=== PATIENT | female | born 1965 | race Caucasian/White ===

== ENCOUNTER 2018-10-03 13:39 | Inpatient (IN) ==
--- NOTE | 2018-10-03 13:51 | Anesthesia Evaluation PreOp ---
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 10/02/18 [Rx] Docusate [Colace] 100 mg PO BID 10 Days #20 capsule 10/02/18 [Rx] OxyCODONE Immed Rel [Roxicodone 5 MG] 5 mg PO Q6HR PRN 7 Days #28 tablet 10/02/18 [Rx] Allergy/AdvReac Type Severity Reaction Status Date / Time No Known Allergies Allergy Verified 02/09/18 22:09 - Meds/Allergy Pre-op Review Medications Reviewed: Yes Allergies Reviewed: Yes Beta Blockers on Current Med List: No Anesthesia Results - Labs Laboratory Tests 09/14/18 09/14/18 09/14/18 08:10 08:10 08:10 WBC 10.7 Hgb 11.9 Hct 36.3 Plt Count 346 PT 11.2 INR 1.0 APTT 31.5 Sodium 137 Potassium 4.7 Chloride 104 Carbon Dioxide 25 BUN 14 Creatinine 0.52 L Est GFR (Non-Af Amer) > 60 Anesthesia Exam Vital Signs/O2 Sat/Glucose, Most Recent Temp Pulse Resp BP Pulse Ox 98.6 F 104 18 164/95 98 10/03/18 13:50 10/03/18 13:50 10/03/18 13:50 10/03/18 13:50 10/03/18 13:50 Weight: 61 kg NPO (# of Hours): > 8 hr - HEENT Pupil (Motor): Pupils equal Mallampati: II Teeth: Normal Oral Opening: Greater than 3 - WHITING CAN WORKER LOC: Oriented WHITING CAN WORKER Motor: Normal RUE, Normal LUE, Normal RLE, Normal LLE, Normal Face WHITING CAN WORKER Sensory: Normal: RUE, LUE, RLE, LLE, Face - Cardiac Rhythm: Regular Murmur: None - Pulmonary Breath Sounds: bilateral Clear Respiratory Effort: Symmetrical Anesthesia Assess/Plan ASA Score: 2 Level of consciousness: Cooperative, Oriented Anesthetic Plan: MAC, Spinal Monitoring Plan: Standard Monitors Recovery Plan: PACU
[2018-10-03] MEDS ORDERED: Gabapentin 300 MG CAPSULE PO ONE (13:55)
[2018-10-03] MEDS ORDERED: Famotidine 20 MG/2 ML VIAL IVP ONE (13:55)
[2018-10-03] MEDS ORDERED: Acetaminophen IV 1,000 MG/100 ML INFUS..BTL IVPB ONE (13:55)
[2018-10-03] MEDS ORDERED: Ondansetron 4 MG/2 ML VIAL IVP ONE (14:01)
[2018-10-03] MEDS ORDERED: *HR* HYDROmorphone (PF) 1 MG/ML SYRINGE IVP PRN (14:01)
[2018-10-03] MEDS ORDERED: CeFAZolin Syr 2,000MG/20 ML 2,000 MG/20 ML SYRINGE IVPB ONE (14:01)
[2018-10-03] MEDS ORDERED: *HR* OxyCODONE Immed Rel 5 MG TABLET PO PRN (14:01)
[2018-10-03] MEDS ORDERED: *HR* Promethazine 25 MG/ML VIAL IVP PRN (14:01)
[2018-10-03] MEDS ORDERED: Albuterol 2.5 MG/3 ML NEBULIZER IH ONE (14:01)
[2018-10-03] MEDS ORDERED: Ringers Solution, Lactated 1,000 ML IVC SCH ×2 (14:15→19:17)
[2018-10-03] MEDS: Celecoxib 100 MG CAPSULE PO ONE (14:21)
[2018-10-03] MEDS ORDERED: *HR* FentaNYL (PF) 100 MCG/2 ML VIAL ONE (14:23)
[2018-10-03] MEDS ORDERED: *HR* Propofol 200 MG/20 ML VIAL IVP ONE (14:27)
[2018-10-03] MEDS ORDERED: Lidocaine -MPF 4% 5 ML AMPUL ONE (14:29)
[2018-10-03] MEDS ORDERED: *HR* Succinylcholine 200 MG/10 ML VIAL IVP ONE (14:29)
[2018-10-03] MEDS ORDERED: Lidocaine -MPF 2% 2 ML VIAL ONE (14:29)
[2018-10-03] MEDS ORDERED: Dexamethasone 4 MG/ML VIAL ONE (14:29)
[2018-10-03] MEDS ORDERED: Ondansetron 4 MG/2 ML VIAL ONE (14:29)
[2018-10-03] MEDS ORDERED: *HR* Midazolam HCl 2 MG/2 ML VIAL ONE (14:31)
--- NOTE | 2018-10-03 14:47 | History & Physical Report ---
Date of Encounter: 10/03/18 Time of Encounter: 14:47 24 Hour HP Update - Instructions Instructions: If the History and Physical is less than 30 days old and was completed prior to A.M. admission and or procedure and has NOT been updated on calendar day of procedure please complete this update prior to performing procedure. - Update Patient reports changes in Medical Condition: No Changes in examination, assessment, or condition: No Changes in Medication: No Preop tests/diagnostics Reviewed: Yes Surgery Remains Indicated: Yes Consent for Planned Operative Procedure(s) Verified: Yes - Pre-Operative Checklist Preoperative Checklist Indicated: No Prophylactic Antibiotic Ordered: Yes Is VTE Prophylaxis Indicated?: Yes
[2018-10-03] MEDS ORDERED: *HR* Morphine Sulfate/PF 10 MG/10 ML AMPUL ONE (14:49)
[2018-10-03] MEDS ORDERED: Ethanol\\Acetic Acid\\Na Ace\\Ben 1,000 ML IRRIG.SOLN IR ONE (15:29)
--- NOTE | 2018-10-03 15:32 | Anesthesia Procedures ---
Date of Encounter: 10/03/18 Time of Encounter: 15:12 Procedures: Anesthesia - Epidural/Spinal Patient ID/Chart reviewed: Yes Patient examined: Yes Consent Obtained: Yes Supplemental Oxygen: Nasal Cannula Supplemental Oxygen Rate (L/min): 2 Sedation: Versed (mg): 2 Sedation: Fentanyl (mcg): 50 Site Prep: Aseptic Technique, Sterile prep and drape, Povidone-Iodine 1% Patient position: upright Local Anesthetic: Lidocaine 1% Amount of Local Anesthetic used: 2 Interspace Used: L3-L4 Blood: No CSF: Yes (clear) Paresthesia: No Spinal Needle Gauge: 25 Spinal Dose: bupivicaine 0.5% presfree 2 mlwith duramorph 0.2mg Vitals + FHT's: Vital Signs Time 1500 1510 1518 BP 156/79 146/81 142/81 Pulse 87 83 82 Resp 16 16 16 O2 Sat 96 96 96
--- NOTE | 2018-10-03 15:51 | Discharge Summary ---
Addendum entered and electronically signed by FAHAD Rico 10/06/18 20:27: Prior discharge confirmed patient had no other symptoms including no chest pain, SOB, cough, feeling feverish, headache, dizzy or lightheaded, sore throat. Original Note: Orders not resulted at time of discharge: Pending orders 10/03/18 00:01 XR hip complete LT [XR] Routine H/H [Hemoglobin and Hematocrit] [HEME] Routine Date of Encounter: 10/06/18 Time of Encounter: 12:50 - Discharge Diagnosis (1) Status post total hip replacement, left Priority: Primary Status: Acute (2) Osteoarthritis of left hip Priority: Primary Status: Acute Qualifiers: Osteoarthritis type: primary Qualified Code(s): M16.12 - Unilateral primary osteoarthritis, left hip (3) Tobacco dependency Priority: Secondary Status: Acute - Hospital Course Hospital course: Ms. Kelly is a 52 year old female s/p Total Hip Replacment robotic-assisted left 10/03/18 with history of OA, tobacco use. She had a Tmax 99.8 with a few episodes of hypotension which improved with fluid hydration and encouraging incentive spirometer. She participated in therapy and otherwise had an uneventful hospital course. Stable for discharge. Patient seen at bedside, without complaints. A&O x 3 Dressing changed, no further bleeding. No calf tenderness to palpation, good dorsiflexion of foot, sensation intact distally. Labs reviewed. H/H- stable, asymptomatic Dr. Briscoe noted patient to have poor bone quality intraop. Calcium and VitD levels ordered and WNL at this time Pain control: adequate Participating in PT. postoperative XRAYS - stable, also reviewed by Dr. Briscoe All questions and concerns addressed. Educated on use of incentive spirometer. Encouraged ambulation and proper hydration. Patient educated on post-operative restrictions and post-operative care. Assessment and plan: Continue with postoperative care Discharge plan: Home with outpatient therapy, discharge today. - Time Spent with Patient Total time spent providing and/or coordinating discharge services: - Discharge Medications Home Medications: Aspirin Enteric Coated [Aspirin EC] 325 mg PO BID #20 tablet. 10/02/18 [Rx] Docusate [Colace] 100 mg PO BID 10 Days #20 capsule 10/02/18 [Rx] OxyCODONE Immed Rel [Roxicodone 5 MG] 5 mg PO Q6HR PRN 7 Days #28 tablet 10/02/18 [Rx] Multivitamin [One-Daily Multi-Vitamin] 1 tab PO DAILY 10/03/18 [History] Allergies/Adverse Reactions: Allergy/AdvReac Type Severity Reaction Status Date / Time No Known Allergies Allergy Verified 10/03/18 14:11 Date of admission: 10/03/18 Primary care physician: PCP NONE Consults: 10/03/18 19:17 Consult to Nurse Navigator [CONS] Routine Comment: ortho navigator Consult to Occupational Therapy [CONS] Routine Comment: Evaluate, develop and implement POC Reason for Consult: total hip replacement Does patient have active BEDREST order?: No Is patient medically & hemodynamically stable?: Yes Consult to Physical Therapy [CONS] Routine Comment: Evaluate, develop and implement POC Reason for Consult: total hip replacement Does patient have active BEDREST order?: No Is patient medically & hemodynamically stable?: Yes Consult to Car Stower [CONS] Routine Reason for SW Consult: post op joint replacement RT Post Op Consult [CONS] Routine Discharging clinician: Rudi Briscoe Anticipated date of discharge: 10/06/18 Labs on day of discharge: Laboratory Results - last 48 hr 10/03/18 10/05/18 10/05/18 21:35 07:36 07:36 Hgb 9.5 L Hct 29.2 L Sodium 135 L Potassium 3.6 Chloride 102 Carbon Dioxide 25 BUN 5 L Creatinine 0.48 L Est GFR ( Amer) > 60 Est GFR (Non-Af Amer) > 60 BUN/Creatinine Ratio 10 Glucose 105 POC Glucose 125 H Calculated Osmolality 278 L Calcium 9.5 - Impressions Hip X-Ray 10/06/18 06:28 IMPRESSION: Soft tissue gas is identified in the left upper thigh similar in appearance to the prior exam and appears slightly improved. D/ / Nirmala Banegas MD / Nirmala Banegas MD Interpreting Provider: Nirmala Banegas MD - Patient Status Disposition: Home, Self-Care Condition: Good Functional capacity at discharge: uses cane/walker Overall status at discharge: patient is back to baseline - Discharge Instructions Follow Up With: Reva,Kim E, PAC [Physician Building Trades Teacher] - 10/13/18 2:15 pm NONE,PCP [Primary Care Provider] - Additional Instructions: Discharge Instructions: Total Hip Replacement Please call [facility] ([phone]), your Primary Care Physician, or report to the Emergency Room if you have any of the following symptoms: Nausea, vomiting, fever greater that 101.5, swelling, chest pain, shortness of breath, increased pain/redness/drainage/odor for your incision site, numbness/tingling, or any other concerning symptoms. ACTIVITY:Weight-bearing as tolerated for 8 weeks with hip dislocation precautions that physical therapy taught you. You may progress as tolerated under the guidance of your physical therapist. You do not need to sleep with a pillow between your legs. You can also seep on the operative side or on your stomach. Incentive Spirometer 10 times an hour. MEDICATIONS: Upon discharge resume your home medications. Take all the medications as prescribed. Take a stool softener if taking narcotic pain medications. Stool softeners are only effective if you drink enough fluids. Drink 6-8 glass of water or fluids a day, unless this is not allowed for another health problem. Despite using stool softeners, if you haven't had a bowel movement in 3 days, please switch to a gentle laxative. Gentle laxatives are sold over the counter. You should have a bowel movement within 24 hours, if not call the office. You will be discharged from the hospital with a prescription for pain medication. You are encouraged to decrease the use of narcotic pain medication as tolerated. Should you require a refill, please call the office. [facility] prescribes narcotic pain medication for only 4-6 weeks after surgery. If you require pain medication beyond this time period, you may be referred to your Primary Care Physician or to the Pain Clinic for further evaluation. Plan ahead for refills on pain medication as many narcotics either need to be picked up at the office or mailed. It is best to call 48-72 hours in advance of needing a prescription refill so you don't run out of medication. To help control the post-operative pain, you may take NSAIDs (Aleve,Advil, Motrin, ibuprofen, naprosyn) or Tylenol as prescribed on the bottle in addition to the pain medication. ANTICOAGULATION (blood thinners): Continue your Aspirin, Lovenox or Coumadin as prescribed to help prevent a blood clot in the leg or in the lungs. As long as your incision remains dry and you tolerate the NSAIDs (Aleve, Advil, Motrin, Ibuprofen, Naprosyn), it is OK to use the NSAIDS while you are taking your anticoagulation medication. Should your incision start to drain, stop the NSAID and contact our office. Common symptoms of blood clot in the legs include: localized pain, swelling, calf tenderness, redness or discoloration of the skin. Blood clot in the lung symptoms include: shortness of breath, rapid pulse, sweating, and chest pain that worsens with deep breathing, coughing up blood, lightheadedness, feelings of anxiety. If you experience any of these symptoms notify your physician immed iately, go to the emergency room, or if having trouble breathing, call 911. WOUND CARE: Leave the dressing on for 7 to 10days. You may change the dressing if it is saturated greater than 50%. Do not get the dressing wet at anytime. Wash your hands with antibacterial soap, rinse and dry prior to any wound care. If you have leonie the visiting nurse or rehab facility can remove the stapes 10-14 days after surgery and place steri-strips across the wound. Leave the steri-strips in place until they fall off on their own. You may let water from the shower run on top of the steri-strips. If you do not have a visiting nurse or rehab facility, you will need to return to the office at 10-14 days for the leonie to be removed. If you have itching or redness around the dressing call the office. FOLLOW-UP: Please follow up with your surgeon in the orthopedic clinic in 6 weeks from the day of surgery. If you have leonie that need to be removed, you will need to come back to the office in 10-14 days from the day of surgery. - Diet and Activity Activity: as per physical therapy Diet: advance to your usual diet
[2018-10-03] MEDS ORDERED: *HR* PHENYLEPHRINE 1,000 MCG/10 ML SYRINGE IVP ONE (16:30)
--- NOTE | 2018-10-03 17:30 | Orthopedic Operative Note ---
Date of procedure: 10/03/18 Pre-op diagnosis: Severe left hip arthritis with proximal femoral migration Post-op diagnosis: same (Significant cyst formation acetabulum and femoral head, osteoporosis) Procedure: Procedure: Total Hip Replacment robotic-assisted left Estimated blood loss: 200 cc Hardware: Metal and polyethylene replacement. [place] DM Cup: 56 multihole revision cup Femoral size stem 7 Head: +12 head with Rayna, 5 6.5 cancellus screws Procedural Notes: Grade 4 arthritic changes femoral head acetabular socket with significant posterior acetabular wear and cystic formation acetabulum poor bone quality, procedure performed with robotic assistance. Patient 16 mm short as measured by preoperative CT scan. Operative procedure: The patient was brought to the operating room and placed on the operating room table. After general anesthesia was administered the patient was placed in the lateral decubitus position with the operative leg up. All pressure points were padded appropriately and the head was stabilized in the neutral position. The operative extremity was prepped and draped in the sterile surgical fashion patient received IV antibiotic prior to skin incision. 3 Steinmann pins were placed in the iliac crest 3 cm proximal to the anterior superior iliac spine this was for the robotic-assisted sensor. This was done through a small 2 cm incision. A standard posterior approach is made to the operative hip, the incision was made through the skin and subcutaneous tissue hemostasis was obtained with Bovie cautery. Using careful sharp dissection the fascia was identified and incised exposing the external rotators. The greater trochanter was marked, and length was measured at this time utilizing robotic assistance. The external rotators were released off the greater trochanter and tagged with #2 FiberWire suture. The capsule was T'd open and the hip was brought into internal rotation. Patient noted to have grade 4 arthritic changes femoral head with significant cystic formation. The femoral neck cut was made at the appropriate level roughly 15 mm proximal to the lesser trochanter aced on preoperative templating. An anterior capsulotomy was performed for the anterior retractor. Soft tissues removed from the acetabulum. Patient noted to have significant posterior wear, with grade 4 arthritic changes acetabulum and significant cyst formation within the acetabulum with poor bone quality. The acetabulum reference point was confirmed. The acetabulum was then mapped with robotic assistance. Based on the preoperative plan the acetabulum was reamed in multi step beginning with 53 up to a 55 reamer. The 56 acetabulum was impacted with robotic assistance and 40 degrees of abduction and 27 degrees of anteversion. The hip was brought back in to internal rotation and prepared with the crap game box person followed by the canal finder followed by the reaming process to a size 7/8 broaching process in 20 degrees anteversion. It was broached up to the appropriate size 7 Trial reduction revealed leg lengths close to normal. The femoral implant was impacted in place in 20 degrees of anteversion. During trial reduction, it was felt that the fixation of the acetabulum became comprom ised and version was lost on the acetabulum secondary to poor bone quality. Decision was made to remove the femoral stem and to reevaluate the acetabulum. The metal liner was removed acetabulum position had shifted. The acetabulum was removed and the acetabulum was then reamed more medially manually with a 51 and then in 25 degrees of anteversion and 45 degrees off horizontal up to a size 55. Because of the previous loss of acetabular fixation due to poor bone quality and poor posterior wall acetabulum was fixed with 5 6.5 cancellus screws. This gave significantly stable fixation. The liner was impacted in place. The femoral stem was impacted in place in 20 degrees of anteversion. Trial reduction found the hip to be stable with a +12. The trials were removed and the real implants were impacted in place. The hip was reduced, patient had apparent equal leg lengths. The hip had excellent stability with forward flexion to 90 degrees adduction of 30 degrees and internal rotation of 60 degrees. The hip had no shuck. The hip sat with an antibacterial solution. It was irrigated out with 2 L of pulse irrigation. The Steinmann pins were removed. The hip was closed by the PA. The deep tissue was irrigated and closed deep with #1 PDS suture superficially with 0 PDS suture and skin was closed with Dermabond and zip tie. The patient was placed in a sterile dressing and abduction pillow. The patient was extubated and transferred to the recovery room in stable condition. Anesthesia: spinal Surgeon: Rudi Briscoe Was there an preschool teacher's assistant present: Yes Strap Stitcher: Kim Ardon Estimated blood loss (cc): 200 Condition: stable Disposition: PACU
[2018-10-03] MEDS ORDERED: *HR* Enoxaparin 30 MG/0.3 ML SYRINGE SQ SCH (18:00)
[2018-10-03 18:19] LABS: Hematocrit 35.1 % (35.3-44.9); Hemoglobin 11.5 g/dL (11.5-15.4)
--- NOTE | 2018-10-03 18:41 | Anesthesia Evaluation Post Op ---
Date of Encounter: 10/03/18 Time of Encounter: 18:41 - Vital Signs Vital Signs: Last Vital Signs Temp 98.5 F 10/03/18 18:27 Pulse 65 10/03/18 18:27 Resp 15 10/03/18 18:27 BP 154/90 10/03/18 18:27 Pulse Ox 97 10/03/18 18:27 - Lungs Lungs: Clear Ascult./Percussion - Airway Airway: Non-obstructed - Cardiovascular Regular Rate - Mental Status Mental Status: Alert & Oriented, Answers Appropriately - Pain Pain Scale: 2 - Nausea Vomiting Nausea Vomiting: Not Present - Hydration Hydration: NPO - Discharge PostOp Status: Transfer Patient to floor
[2018-10-03] MEDS ORDERED: Sennosides 8.6 MG TABLET PO PRN (19:17)
[2018-10-03] MEDS ORDERED: Ondansetron 4 MG/2 ML VIAL IVP PRN ×2 (19:17)
[2018-10-03] MEDS ORDERED: MOM Conc 10 ML UD.LIQ PO PRN (19:17)
[2018-10-03] MEDS ORDERED: Naloxone 0.4 MG/ML INJ IVP PRN (19:17)
[2018-10-03] MEDS ORDERED: *HR* OxyCODONE/APAP 5/325 TABLET PO PRN (19:17)
[2018-10-03] MEDS: Ascorbic Acid 500 MG TABLET PO SCH (20:34)
[2018-10-03] MEDS: traMADol 50 MG TABLET PO PRN (22:18)
[2018-10-04] MEDS: *HR* OxyCODONE Immed Rel 5 MG TABLET PO PRN ×6 (00:37→21:12)
[2018-10-04] MEDS: *HR* Enoxaparin 30 MG/0.3 ML SYRINGE SQ SCH ×2 (04:46→17:32)
--- NOTE | 2018-10-04 06:44 | Orthopedics Progress Note ---
Date of Encounter: 10/04/18 Time of Encounter: 06:44 Subjective Interval history: Patient was seen this morning doing well without complaints. Afebrile vital signs stable. Operative extremity: Neurovascularly intact Dressing clean dry and intact Calves nontender Assessment and plan: Continue with postoperative care hematocrit 35 Objective Vital signs: Vital Signs Temp Pulse Resp BP Pulse Ox 10/04/18 04:49 97.9 F 77 15 112/71 97 10/03/18 23:30 98.1 F 76 16 97/61 95 10/03/18 22:10 97.9 F 82 15 122/84 98 10/03/18 21:37 97.3 F L 86 15 137/89 95 10/03/18 21:00 97.8 F 85 16 128/78 98 10/03/18 20:00 97.5 F L 75 15 148/80 99 10/03/18 19:30 98.0 F 69 15 150/83 98 10/03/18 19:18 99 10/03/18 19:05 97.5 F L 66 14 155/90 100 10/03/18 18:37 98.0 F 84 13 146/95 97 10/03/18 18:27 98.5 F 65 15 154/90 97 10/03/18 18:17 77 13 145/88 97 10/03/18 18:07 80 13 128/83 97 10/03/18 17:57 98.3 F 93 16 126/86 95 10/03/18 15:44 86 16 143/81 98 10/03/18 15:34 82 16 140/79 98 10/03/18 15:24 80 16 142/81 98 10/03/18 15:14 85 16 146/81 98 10/03/18 15:05 94 18 156/79 100 10/03/18 14:07 98.6 F 104 18 164/95 98 10/03/18 13:50 98.6 F 104 18 164/95 98 Intake and Output 10/03/18 10/03/18 10/04/18 15:59 23:59 07:59 Intake Total 100 / 100 50 / 50 Output Total 200 / 200 600 / 600 Balance -100 / -100 -550 / -550 Intake: IV Fluids 100 / 100 Ancef 2,000 MG In 0.9 % Sodium 100 / 100 Chloride 100 ML @ 200 mls/hr IVPB Q8H [facility] Rx#:[id number] Oral 50 / 50 Output: Urine 600 / 600 Estimated Blood Loss 200 / 200 Other: Weight 61.235 kg - Labs CBC & BMP: 10/03/18 18:11 Labs: Abnormal lab results Hct 35.1 % (35.3-44.9) L 10/03/18 18:11 Consult Discharge Plan - Plan Referrals: NONE,PCP [Primary Care Provider] -
[2018-10-04] MEDS: Ascorbic Acid 500 MG TABLET PO SCH ×2 (08:59→17:32)
[2018-10-04] MEDS: Multivit/Ca/Min/Fe/FA 1 TAB TABLET PO SCH (08:59)
[2018-10-04] MEDS ORDERED: MULTIVITAMIN PO SCH (09:00)
[2018-10-04 11:33] LABS: Hematocrit 31.9 % (35.3-44.9); Hemoglobin 10.5 g/dL (11.5-15.4)
[2018-10-04 11:43] LABS: BUN/Creatinine Ratio 13 (6-26); Blood Urea Nitrogen 7 mg/dL (6-20); Calcium 9.4 mg/dL (8.6-10.3); Carbon Dioxide 28 mEq/L (23-29); Chloride 102 mEq/L (98-107); Glucose 126 mg/dL (70-105); Osmolality,Calculated 282 (280-300); Sodium 136 mEq/L (136-145); eGFR For Non-African Americans > 60 (> 60)
--- NOTE | 2018-10-04 17:19 | Event Note ---
Date of Encounter: 10/04/18 Time of Encounter: 12:40 PCR - POD#1 s/p Total Hip Replacment robotic-assisted left 10/03/18 Patient seen at bedside, without complaints. A&O x 3 Tmax 99.7, hypotensive this morning has not normalized - encouraged IS. Dressings have roughly 30% saturation. will continue to monitor. No calf tenderness to palpation, good dorsiflexion of foot, sensation intact distally. Labs reviewed. H/H 10.5/31.9- stable, asymptomatic Dr. Briscoe noted patient to have poor bone quality intraop. Calcium and VitD levels ordered and WNL at this time Pain control: adequate Participating in PT. postoperative XRAYS - stable, also reviewed by Dr. Briscoe All questions and concerns addressed. Educated on use of incentive spirometer. Encouraged ambulation and proper hydration. Patient educated on post-operative restrictions and post-operative care. Assessment and plan: Continue with postoperative care Discharge plan: Home with outpatient therapy, discharge possibly tomorrow.
[2018-10-04] MEDS: Temazepam 15 MG CAPSULE PO PRN (21:12)
[2018-10-05] MEDS: *HR* Enoxaparin 30 MG/0.3 ML SYRINGE SQ SCH ×2 (04:33→17:32)
[2018-10-05] MEDS: *HR* OxyCODONE Immed Rel 5 MG TABLET PO PRN ×4 (04:33→21:31)
[2018-10-05] MEDS: traMADol 50 MG TABLET PO PRN ×2 (07:45→17:32)
[2018-10-05] MEDS: Ascorbic Acid 500 MG TABLET PO SCH ×2 (07:45→17:33)
[2018-10-05] MEDS: Multivit/Ca/Min/Fe/FA 1 TAB TABLET PO SCH (07:45)
--- NOTE | 2018-10-05 08:04 | Orthopedics Progress Note ---
Date of Encounter: 10/05/18 Time of Encounter: 08:02 Subjective Interval history: Patient was seen this morning doing well without complaints. Afebrile vital signs stable. Operative extremity: Neurovascularly intact Dressing clean dry and intact Calves nontender Assessment and plan: Continue with postoperative care hematocrit 31 plan for discharge tomorrow Objective Vital signs: Vital Signs Temp Pulse Resp BP Pulse Ox 10/05/18 06:36 99.8 F H 89 15 119/74 94 10/05/18 04:54 98.2 F 69 15 126/93 97 10/04/18 23:40 98.3 F 71 18 126/93 96 10/04/18 19:59 99.3 F 94 16 106/69 94 10/04/18 15:34 99.0 F 82 15 116/72 96 10/04/18 11:47 99.7 F H 85 15 129/77 96 Intake and Output 10/04/18 10/05/18 10/05/18 23:59 07:59 15:59 Intake Total 500 / 500 Output Total 500 / 500 Balance 0 / 0 Intake: Oral 500 / 500 Output: Urine 500 / 500 Other: # Voids 1 1 - Labs CBC & BMP: 10/04/18 10:59 10/04/18 10:59 Labs: Abnormal lab results Hgb 10.5 g/dL (11.5-15.4) L 10/04/18 10:59 Hct 31.9 % (35.3-44.9) L 10/04/18 10:59 Creatinine 0.54 mg/dL (0.60-1.20) L 10/04/18 10:59 Glucose 126 mg/dL (70-105) H 10/04/18 10:59 POC Glucose 125 mg/dL (70-99) H 10/03/18 21:35 Consult Discharge Plan - Plan Referrals: NONE,PCP [Primary Care Provider] -
[2018-10-05 08:12] LABS: Hematocrit 29.2 % (35.3-44.9); Hemoglobin 9.5 g/dL (11.5-15.4)
[2018-10-05 08:29] LABS: BUN/Creatinine Ratio 10 (6-26); Blood Urea Nitrogen 5 mg/dL (6-20); Calcium 9.5 mg/dL (8.6-10.3); Carbon Dioxide 25 mEq/L (23-29); Chloride 102 mEq/L (98-107); Glucose 105 mg/dL (70-105); Osmolality,Calculated 278 (280-300); Potassium 3.6 mEq/L (3.5-5.1); Sodium 135 mEq/L (136-145); eGFR For Non-African Americans > 60 (> 60)
--- NOTE | 2018-10-05 16:56 | Event Note ---
Date of Encounter: 10/05/18 Time of Encounter: 12:20 PCR - POD#2 s/p Total Hip Replacment robotic-assisted left 10/03/18 Patient seen at bedside, without complaints. A&O x 3 Tmax 99.8 this morning, hypotension did resolve - encouraged IS. Dressings have roughly 30% saturation. same as from yesterday - did not pass borders, will have dressing changed today No calf tenderness to palpation, good dorsiflexion of foot, sensation intact distally. Labs reviewed. H/H 9.5/.2- stable, asymptomatic Monitoring Cr 0.48 (preop was 0.52) and BUN 5 Dr. Briscoe noted patient to have poor bone quality intraop. Calcium and VitD levels ordered and WNL at this time Pain control: adequate Participating in PT. postoperative XRAYS - stable, also reviewed by Dr. Briscoe All questions and concerns addressed. Educated on use of incentive spirometer. Encouraged ambulation and proper hydration. Patient educated on post-operative restrictions and post-operative care. Assessment and plan: Continue with postoperative care Discharge plan: Home with outpatient therapy, discharge possibly tomorrow.
[2018-10-05] MEDS: Temazepam 15 MG CAPSULE PO PRN (21:31)
[2018-10-06] MEDS: *HR* OxyCODONE Immed Rel 5 MG TABLET PO PRN ×2 (02:15→12:35)
[2018-10-06] MEDS: *HR* Enoxaparin 30 MG/0.3 ML SYRINGE SQ SCH (06:49)
--- NOTE | 2018-10-06 08:00 | Orthopedics Progress Note ---
Date of Encounter: 10/06/18 Time of Encounter: 08:00 Subjective Interval history: Patient was seen this morning doing well without complaints. Afebrile vital signs stable. Operative extremity: Neurovascularly intact Dressing clean dry and intact Calves nontender Assessment and plan: Continue with postoperative care discharge today Objective Vital signs: Vital Signs Temp Pulse Resp BP Pulse Ox 10/06/18 07:08 98.4 F 86 16 104/63 97 10/06/18 04:10 99.4 F 96 16 99/64 93 10/05/18 22:39 99.1 F 89 16 97/61 96 10/05/18 20:08 99.8 F H 87 16 116/72 96 10/05/18 16:16 98.3 F 83 16 122/80 96 10/05/18 11:34 98.4 F 83 15 115/67 96 10/05/18 10:05 119/73 Intake and Output 10/05/18 10/05/18 10/06/18 15:59 23:59 07:59 Intake Total 300 / 300 240 / 240 Balance 300 / 300 240 / 240 Intake: Oral 300 / 300 240 / 240 Other: Meal Breakfast Dinner Percent of Meal Consumed 10% 80% # Voids 2 1 1 Weight 70.6 kg - Labs CBC & BMP: 10/05/18 07:36 10/05/18 07:36 Labs: Abnormal lab results Hgb 9.5 g/dL (11.5-15.4) L 10/05/18 07:36 Hct 29.2 % (35.3-44.9) L 10/05/18 07:36 Sodium 135 mEq/L (136-145) L 10/05/18 07:36 BUN 5 mg/dL (6-20) L 10/05/18 07:36 Creatinine 0.48 mg/dL (0.60-1.20) L 10/05/18 07:36 POC Glucose 125 mg/dL (70-99) H 10/03/18 21:35 Calculated Osmolality 278 (280-300) L 10/05/18 07:36 Consult Discharge Plan - Plan Referrals: NONE,PCP [Primary Care Provider] -
[2018-10-06] MEDS: traMADol 50 MG TABLET PO PRN (08:08)
[2018-10-06] MEDS: Multivit/Ca/Min/Fe/FA 1 TAB TABLET PO SCH (08:08)
[2018-10-06] MEDS: Ascorbic Acid 500 MG TABLET PO SCH (08:08)
[2018-10-06 12:14] VITALS: BP 109/69
== END 2018-10-06 15:23 | disposition home or self-care (01) | DRG 470 ==
LOC: SAMDAY 13:39 → 3NENU 18:59
PROVIDERS: ADMIT Orthopaedic Surgery; ATTEND Orthopaedic Surgery